=== PATIENT | female | born 1975 | race Caucasian/White ===

== ENCOUNTER 2018-01-02 05:50 | Inpatient (IN) | payer MEDICAID, SELFPAY ==
[2018-01-01 09:33] VITALS: BMI 35.6
[2018-01-01 09:42] LABS: Absolute Lymphocyte Count 1.29 X10^3/ul (0.83-4.51); Absolute Neutrophil Count 4.3 X10^3/uL (2.0-7.7); Basophil# 0.01 X10^3/uL; Basophil% 0.2 % (0-1); Eosinophil# 0.06 X10^3/uL; Eosinophils% 0.9 % (0-5); Hematocrit 33.6 % (37-47); Hemoglobin 10.9 g/dl (12.0-15.0); Lymphocyte # 1.29 X10^3/ul (4.0); Lymphocyte % 20.3 % (19-41); Mean Corp Hgb Conc 32.4 g/gl (32-36); Mean Corpuscular Hgb 27.4 pg (27.0-32.0); Mean Corpuscular Volume 84.4 fL (81-99); Mean Platelet Vol. 9.8 fl (6.2-12.0); Monocyte# 0.64 X10^3/uL; Monocyte% 10.1 % (0-10); Neutrophil # 4.33 X10^3/uL (2.7-7.7); Neutrophil % 68.3 % (47-70); Platelet Count 187 K/mm3 (150-450); RBC Distribution Width CV 14.5 % (11.6-14.6); RBC Distribution Width SD 43.6 fl (35.1-43.9); Red Blood Count 3.98 M/mm3 (4.2-5.4); White Blood Count 6.3 K/mm3 (4.4-11.0)
[2018-01-01 09:43] LABS: POSITIVE COUNT NO; POSITIVE DIFFERENTIAL NO; POSITIVE MORPHOLOGY NO
[2018-01-01 09:45] LABS: Prothrombin Time (Protime)PT. 12.9 SECONDS (11.7-14.9)
[2018-01-01 09:46] LABS: Partial Thromboplast Time 25.1 Seconds (24.1-36.2)
[2018-01-02] VITALS (21 sets, daily range): BP systolic 113–147; BP diastolic 49–82; PULSE 71–96; RESP 16–23; TEMP 36.6–37.4; O2SAT 91–100
[2018-01-02] MEDS: Lactated Ringers 1,000 ML 999 ML IV (06:29)
[2018-01-02] MEDS: Lactated Ringers 1,000 ML 150 ML IV (07:10)
[2018-01-02] MEDS: Cefazolin 2 GM in 0.9% Normal Saline 100 ML IV (07:12)
[2018-01-02] MEDS: Sodium Citrate/Citric Acid 30 ML UDC PO (07:12)
--- NOTE | 2018-01-02 07:18 | PCM.DCCSEC ---
Discharge Diet: No Restrictions Discharge Activity: May not drive while taking narcotic pain medications., May Shower, May Take a Tub Bath Return to work on:: 02/18/18 May resume sexual activity in: 4-6 weeks Lifting Restrictions: 20 pounds Additional Activity Instructions:: Nothing in the vagina for 4-6 weeks. You may return to work/school in 6 weeks. Change Dressing in (Days):: 14 Remove Dressing in (days):: 14 Cleanse incision/area with: Soap & Water, Keep Dressing Clean & Dry Additional Instructions: If you experience any of the following, contact your healthcare provider. Bleeding that soaks a pad every hour for 2 hours Fever 100.4 or higher Unrelieved incision or abdominal pain Swelling, redness, discharge or bleeding from your incision Problems urinating (including inability to urinate or burning while urinating). Visual changes Severe headache Flu-like symptoms Pain or redness in one of both of your breasts Pain, warmth, tenderness or swelling in your legs, especially the calf area Frequent nausea and vomiting Symptoms of depression or anxiety If you experience any of the following, call 911 or go to the nearest Emergency Room. Chest pain Problems breathing Seizure activity Partial or complete paralysis of a body part, slurred speech, weakness or drooping of the face, or a sudden inability to walk or hold your balance Allergies/Adverse Reactions: Allergies No Known Allergies Allergy (Verified 01/02/18 06:23) Medications to take at Discharge Vit No.130/Iron/FA [ Vitamins] 1 each PO DAILY 01/01/18 Docusate Sodium [Colace] 100 mg PO BID PRN #30 cap 01/02/18 Naproxen 250 - 500 mg PO Q8H PRN PRN #30 tab 01/02/18 Oxycodone [Oxyir] 5 - 10 mg PO Q6H PRN PRN 7 Days #28 tablet 01/02/18 The following prescriptions were given: Oxycodone [Oxyir] 5 - 10 mg PO Q6H PRN PRN 7 Days #28 tablet PRN Reason: Mod-Severe Pain (4-10/10) Naproxen 250 - 500 mg PO Q8H PRN PRN #30 tab PRN Reason: Mild-Mod Pain (1-5/10) Docusate Sodium [Colace] 100 mg PO BID PRN #30 cap PRN Reason: Constipation Follow-Up: Call to make an appointment with your doctor for an incision check in 1-2 weeks. You will also need a 6 week post- follow up appointment. Please Follow Up With: Jennie Alamo MD - [phone] When: Call to make an appointment for an incision check in 2 weeks. Primary Care Physician: Yesika De Paz [Primary Care Provider] - Proposed Discharge Date: 01/04/18
--- NOTE | 2018-01-02 07:25 | DCINST_ITS ---
Discharge Diet: No Restrictions Discharge Activity: May not drive while taking narcotic pain medications., May Shower, May Take a Tub Bath Return to work on:: 02/18/18 May resume sexual activity in: 4-6 weeks Lifting Restrictions: 20 pounds Additional Activity Instructions:: Nothing in the vagina for 4-6 weeks. You may return to work/school in 6 weeks. Change Dressing in (Days):: 14 Remove Dressing in (days):: 14 Cleanse incision/area with: Soap & Water, Keep Dressing Clean & Dry Additional Instructions: If you experience any of the following, contact your healthcare provider. * Bleeding that soaks a pad every hour for 2 hours * Fever 100.4 or higher * Unrelieved incision or abdominal pain * Swelling, redness, discharge or bleeding from your incision * Problems urinating (including inability to urinate or burning while urinating) . * Visual changes * Severe headache * Flu-like symptoms * Pain or redness in one of both of your breasts * Pain, warmth, tenderness or swelling in your legs, especially the calf area * Frequent nausea and vomiting * Symptoms of depression or anxiety If you experience any of the following, call 911 or go to the nearest Emergency Room. * Chest pain * Problems breathing * Seizure activity * Partial or complete paralysis of a body part, slurred speech, weakness or drooping of the face, or a sudden inability to walk or hold your balance Allergies/Adverse Reactions: Allergies No Known Allergies Allergy (Verified 01/02/18 06:23) Medications to take at Discharge Vit No.130/Iron/FA [ Vitamins] 1 each PO DAILY 01/01/18 Docusate Sodium [Colace] 100 mg PO BID PRN #30 cap 01/02/18 Naproxen 250 - 500 mg PO Q8H PRN PRN #30 tab 01/02/18 Oxycodone [Oxyir] 5 - 10 mg PO Q6H PRN PRN 7 Days #28 tablet 01/02/18 The following prescriptions were given: Oxycodone [Oxyir] 5 - 10 mg PO Q6H PRN PRN 7 Days #28 tablet PRN Reason: Mod-Severe Pain (4-10/10) Naproxen 250 - 500 mg PO Q8H PRN PRN #30 tab PRN Reason: Mild-Mod Pain (1-5/10) Docusate Sodium [Colace] 100 mg PO BID PRN #30 cap PRN Reason: Constipation Follow-Up: Call to make an appointment with your doctor for an incision check in 1-2 weeks. You will also need a 6 week post- follow up appointment. Please Follow Up With: Jennie Alamo MD - [phone] When: Call to make an appointment for an incision check in 2 weeks. Primary Care Physician: Yesika De Paz [Primary Care Provider] - Proposed Discharge Date: 01/04/18
[2018-01-02] MEDS: Oxytocin 30 units/NS 500 ml 30 UNITS/500 ML IV.SOLN 167 UNITS IV (07:47)
[2018-01-02] MEDS: Methylergonovine 0.2 MG/ML Ampul IM (07:50)
[2018-01-02] MEDS: Lactated Ringers 1,000 ML 100 ML IV ×2 (08:52→18:51)
[2018-01-02] MEDS: 0.9% Saline Lock 10 ML Syringe IV ×7 (10:00→18:50)
--- NOTE | 2018-01-02 10:49 | FALS_PTH ---
PATIENT: JESÚS ORTIZ LOC: [facility] U#:[id number] AGE/SX: 42/F ROOM: WP008 RE01/02/[address]: Dr. Jennie Alamo MD : 1975 BED: 1 DIS: 01/05/2018 SPEC #: [id number] RECD: 01/02/18 11:28 STATUS: GUZMAN CED #: [id number] SHERITA: 01/02/18 10:[address]: Jennie Alamo DEPT: SURGICAL PATHOLOGY RECD BY: Luz Elena Sigala ENTERED: 01/02/18 12:25 SP TYPE: FALL TUBES OTHR DR: Dr. Yesika De Paz MD Tissues: Fallopian tube Procedures: Surgery Specimen Level II HEADER OPERATION: Tubal ligation PRE-OP DIAGNOSIS: Tubal ligation TISSUE SUBMITTED: Fallopian tubes, left with tie MICROSCOPIC DIAGNOSIS Bilateral fallopian tubes, tubal ligation: Completely transected segments of bilateral fallopian tubes, no pathologic diagnosis. SJ:siddharth 01/03/18 MICROSCOPIC DESCRIPTION Slides are reviewed. GROSS DESCRIPTION Received is one container labeled with the patient's name and designated bilateral fallopian tubes, tie on left. The specimen consists of two tubular pieces of chandra soft tissue. The left is identified by a tie. The right tube measures 1 cm in length and 0.5 cm in diameter. The left tube measures 0.5 cm in length and 0.5 cm in diameter and it is inked black. The entire specimen is submitted in one cassette. Both pieces will be sectioned at the time of embedding. / DERICK:siddharth 01/02/18 TC:4 CPT: 42619 x2
[2018-01-02] MEDS: Prenatal Vits Tablet 1 TABLET PO (12:04)
[2018-01-02] MEDS: Ketorolac 30 MG/ML Syringe IV ×2 (14:36→20:46)
[2018-01-02] MEDS: HYDROmorphone 1 MG/ML Syringe IV ×2 (16:04→18:49)
--- NOTE | 2018-01-02 18:27 | PCM.OP.BLANK ---
Operative Report Date of Procedure: 01/02/18 Date of Procedure: 01/02/2018 PROCEDURE: Repeat C SECTION Bilateral partial salpingectomy Preoperative diagnosis: 39 wk EGA Prior C section delivery, planned repeat C/S Sterilization request Postop diagnosis: 39 wk EGA Prior C section delivery, planned repeat C/S Sterilization request Anesthesia: Spinal per José Miguel Moore CRNA Converted to General Anesthesia Mane Israel MD as spinal not effective and no surgical level Surgeon: Jennie Alamo MD Upholstery Estimator: SAQIB Solis EBL 800 cc Complications: none Drains: Perez draining clear yellow urine Fluids: replacement LR Findings: At amniotomy, clear fluid was noted. Nick viable female in vtx presentation. Apgars 7/8, Baby weight: 7# 1 oz There were normal appearing uterus, fallopian tubes and ovaries bilaterally. PATH: Routine cord gases were sent. Narrative account: After the risks, benefits and alternatives of the procedure were reviewed with the patient , informed consent was obtained. The patient was taken to the Operating room with an IV running . She was placed in a seated position on the operating room table and a Spinal was administered. The patient was the repositioned to the dorsal supine position with leftward displacement of the uterus , briefly frog-legged for placement of the Perez catheter under sterile technique, and then repositioned again to dorsal supine position with leftward displacement of the uterus, and prepped and draped in the usual sterile fashion. On testing, the spinal was NOT adequate -- no levels were noted. Dr. Mane Israel was called in and the decision was made to proceed with a general anesthesia . She was prepped and draped in the usual sterile fashion. General anesthesia was then administered and once she was intubated, the C section commenced. A Pfannenstiel skin incision was created using the knife . The incision was carried down to the rectus fascia using the knife. The fascia was nicked in the midline. The fascial incision was extended bilaterally using curved Ortiz scissors. The superior aspect of the fascial incision was grasped with Preston clamps and tented up and the underlying rectus abdominal muscles were dissected free. In a similar manner, the inferior aspect of the facial incision was grasped with Preston clamps tented up and the underlying rectus abdominal muscles were dissected free. The rectus abdominis muscles were widely . The peritoneum was identified and entered by sharp dissection. The peritoneal incision was then extended inferiorly and superiorly using Metzenbaum scissors. The peritoneum was stretched laterally and a bladder blade was inserted. The uterine incision was then created using Metzenbaum scissors.The uterine incision was extended by blunt dissection in a caudad- cephalad orientation using the pile driver operator barge mounted's fingertips. Clear fluid was noted at amniotomy. The baby was then delivered . The OP and nares were bulb suctioned on the abdomen. The cord was clamped x two and cut and the baby was passed off quickly to the nurse and flight follower awaiting delivery. The baby was initially with poor tone and minimal respiratory effort. (general anesthesia) The umbilical cord was doubly clamped for later cord gas collection . The placenta was then delivered. The uterus was exteriorized and cleared of clots and debris . The cervix was dilated with a ring forceps which was then passed off the field. The uterine incision was repaired with 1 Vicryl in a running locked fashion. Additional figure of eight and horizontal mattress stitches of 1 Vicryl were placed along the uterine incision for hemostasis. Excellent hemostasis was noted. The uterus was initially boggy but responded to IV Pitocin push and to uterine massage. Methergine 0.2 mg IM x one was also given in the R thigh. The R fallopian tube was grasped at a relatively avascular midportion with a [place] clamp and tented up. Bovie cautery was used to create a defect in the mesosalpinx. The proximal and distal ends of the fallopian tube at this serosal defect with tied with catgut. A knuckle of the R fallopian tube was tented up and an additional ligature was placed inferior to both prior ties placed. The knuckle of the fallopian tube was excised by Metzenbaum scissors. The segment of the R fallopian tube excised was set aside for path review. The tubal stumps were Bovie cauterized. The L fallopian tube was the tied in a similar manner. Tubal segments were set aside for later pathology review. The uterus, fallopian tubes and ovaries were then inspected and returned to the abdominal cavity. The gutters were cleared of clots and debris. The uterine incision and fallopian tubes were again inspected. Excellent hemostasis was noted. The rectus abdominis and peritoneal edges were reapproximated in the midline with interrupted vertical mattress stitches of 1 Vicryl . Excellent hemostasis was noted at the subfascial space. The fascia was closed in a running nonlocked fashion with 1 Vicryl. The Subcutaneous fatty tissue was Bovie cauterized as needed for hemostasis. This layer was then reapproximated with a nonlocked running 3-0 Vicryl. The skin edges were closed in a Subcuticular stitch of 4-0 Monocryl. The incision was cleansed. Seri-strips, and a sterile dressing were applied. The patient was then transferred to the recovery room bed in stable condition after tolerating the procedure well. Sponge, lap, needle and instrument counts correct times two. Medications given preop and intraoperatively included: Ancef 2 gm IV given adult basic education instructor to the operating room. The patient also received Pitocin given IV after cord clamp, Methergine 0.2 mg IM in R thigh (for mild uterine atony under general anesthesia), and Toradol 30 mg IV after cord clamp. For a complete listing of medications given preop and intraoperatively, please see the anesthesia record.
--- NOTE | 2018-01-02 18:42 | OP.PCM_ITS ---
Operative Report Date of Procedure: 01/02/18 Date of Procedure: 01/02/2018 PROCEDURE: Repeat C SECTION Bilateral partial salpingectomy Preoperative diagnosis: 39 wk EGA Prior C section delivery, planned repeat C/S Sterilization request Postop diagnosis: 39 wk EGA Prior C section delivery, planned repeat C/S Sterilization request Anesthesia: Spinal per José Miguel Moore CRNA Converted to General Anesthesia Mane Israel MD as spinal not effective and no surgical level Surgeon: Jennie Alamo MD Grades 9 12 Tutor: SAQIB Solis EBL 800 cc Complications: none Drains: Perez draining clear yellow urine Fluids: replacement LR Findings: At amniotomy, clear fluid was noted. Nick viable female in vtx presentation. Apgars 7/8, Baby weight: 7# 1 oz There were normal appearing uterus, fallopian tubes and ovaries bilaterally. PATH: Routine cord gases were sent. Narrative account: After the risks, benefits and alternatives of the procedure were reviewed with the patient , informed consent was obtained. The patient was taken to the Operating room with an IV running . She was placed in a seated position on the operating room table and a Spinal was administered. The patient was the repositioned to the dorsal supine position with leftward displacement of the uterus , briefly frog-legged for placement of the Perez catheter under sterile technique, and then repositioned again to dorsal supine position with leftward displacement of the uterus, and prepped and draped in the usual sterile fashion. On testing, the spinal was NOT adequate -- no levels were noted. Dr. Mane Israel was called in and the decision was made to proceed with a general anesthesia . She was prepped and draped in the usual sterile fashion. General anesthesia was then administered and once she was intubated, the C section commenced. A Pfannenstiel skin incision was created using the knife . The incision was carried down to the rectus fascia using the knife. The fascia was nicked in the midline. The fascial incision was extended bilaterally using curved Ortiz scissors. The superior aspect of the fascial incision was grasped with Preston clamps and tented up and the underlying rectus abdominal muscles were dissected free. In a similar manner, the inferior aspect of the facial incision was grasped with Preston clamps tented up and the underlying rectus abdominal muscles were dissected free. The rectus abdominis muscles were widely . The peritoneum was identified and entered by sharp dissection. The peritoneal incision was then extended inferiorly and superiorly using Metzenbaum scissors. The peritoneum was stretched laterally and a bladder blade was inserted. The uterine incision was then created using Metzenbaum scissors.The uterine incision was extended by blunt dissection in a caudad- cephalad orientation using the hoop punch and coiler operator helper's fingertips. Clear fluid was noted at amniotomy. The baby was then delivered . The OP and nares were bulb suctioned on the abdomen. The cord was clamped x two and cut and the baby was passed off quickly to the nurse and research and development scientist awaiting delivery. The baby was initially with poor tone and minimal respiratory effort. (general anesthesia) The umbilical cord was doubly clamped for later cord gas collection . The placenta was then delivered. The uterus was exteriorized and cleared of clots and debris . The cervix was dilated with a ring forceps which was then passed off the field. The uterine incision was repaired with 1 Vicryl in a running locked fashion. Additional figure of eight and horizontal mattress stitches of 1 Vicryl were placed along the uterine incision for hemostasis. Excellent hemostasis was noted. The uterus was initially boggy but responded to IV Pitocin push and to uterine massage. Methergine 0.2 mg IM x one was also given in the R thigh. The R fallopian tube was grasped at a relatively avascular midportion with a [place] clamp and tented up. Bovie cautery was used to create a defect in the mesosalpinx. The proximal and distal ends of the fallopian tube at this serosal defect with tied with catgut. A knuckle of the R fallopian tube was tented up and an additional ligature was placed inferior to both prior ties placed. The knuckle of the fallopian tube was excised by Metzenbaum scissors. The segment of the R fallopian tube excised was set aside for path review. The tubal stumps were Bovie cauterized. The L fallopian tube was the tied in a similar manner. Tubal segments were set aside for later pathology review. The uterus, fallopian tubes and ovaries were then inspected and returned to the abdominal cavity. The gutters were cleared of clots and debris. The uterine incision and fallopian tubes were again inspected. Excellent hemostasis was noted. The rectus abdominis and peritoneal edges were reapproximated in the midline with interrupted vertical mattress stitches of 1 Vicryl . Excellent hemostasis was noted at the subfascial space. The fascia was closed in a running nonlocked fashion with 1 Vicryl. The Subcutaneous fatty tissue was Bovie cauterized as needed for hemostasis. This layer was then reapproximated with a nonlocked running 3-0 Vicryl. The skin edges were closed in a Subcuticular stitch of 4-0 Monocryl. The incision was cleansed. Seri-strips , and a sterile dressing were applied. The patient was then transferred to the recovery room bed in stable condition after tolerating the procedure well. Sponge, lap, needle and instrument counts correct times two. Medications given preop and intraoperatively included: Ancef 2 gm IV given information technology architect to the operating room. The patient also received Pitocin given IV after cord clamp, Methergine 0.2 mg IM in R thigh (for mild uterine atony under general anesthesia), and Toradol 30 mg IV after cord clamp. For a complete listing of medications given preop and intraoperatively, please see the anesthesia record.
[2018-01-03] VITALS (9 sets, daily range): BP systolic 116–124; BP diastolic 57–72; PULSE 70–95; RESP 18–23; TEMP 36.4–37.3; O2SAT 95–100
[2018-01-03] MEDS: HYDROmorphone 1 MG/ML Syringe IV ×3 (00:10→08:19)
--- NOTE | 2018-01-03 02:14 | NURSING ---
nasal canula remains on, pt took off briefly to wash face and sat dropped to low 90's
[2018-01-03] MEDS: Ketorolac 30 MG/ML Syringe IV ×4 (03:21→20:56)
[2018-01-03 04:33] LABS: Hematocrit 24.8 % (37-47); Hemoglobin 7.8 g/dl (12.0-15.0); Mean Corp Hgb Conc 31.5 g/gl (32-36); Mean Corpuscular Hgb 26.9 pg (27.0-32.0); Mean Corpuscular Volume 85.5 fL (81-99); Mean Platelet Vol. 9.6 fl (6.2-12.0); Platelet Count 160 K/mm3 (150-450); RBC Distribution Width CV 14.5 % (11.6-14.6); RBC Distribution Width SD 43.4 fl (35.1-43.9); White Blood Count 7.9 K/mm3 (4.4-11.0)
[2018-01-03 04:36] LABS: Scan Indicated on CBC? Y/N NO
--- NOTE | 2018-01-03 07:43 | PCM.PN.OB ---
Subjective: POD#1 Repeat C/S and BPS under general anesthesia. Duramorph in but no effect. Pt also received narcotics for pain yesterday. Pulse ox dropped without O2 overnight so N.C. maintained, and plan to wean off this today. Pain ok now. States + flatus, no BM. Nursing and pumping. Baby doing well. Bleeding OK. No concerns voiced. - Physical Exam General: Alert, Oriented x3, Cooperative, No apparent distress - appears pale HEENT: Atraumatic, PERRLA Neck: Supple Abdomen: Soft - Fundus inferior to umbilicus x 1-2 cm. Tender consistent with postop status Skin: Incision - Cover dressing removed. Steristrips CDI. Well approximated Neurological: Cranial nerves II-XII grossly intact Psych/Mental Status: Normal Affect Vital Signs Temp Pulse Resp BP Pulse Ox 98.0 F 77 18 116/57 L 97 /18 03:09 01/03/18 05:25 01/03/18 05:25 01/03/18 03:09 01/03/18 05:25 Oxygen Flow Rate 2 Oxygen Delivery Method Nasal Cannula Weight: 91.4 kg Body Mass Index (BMI) 35.6 Intake and Output for Last 24 Hours 02/06/18 02//18 18 23:59 23:59 23:59 Intake Total 6217 / 6217 1144 / 1144 Output Total 1600 / 1600 1800 / 1800 Balance 4617 / 4617 -656 / -656 Laboratory Tests Past 24 Hrs //18 04:10 WBC 7.9 RBC 2.90 L Hgb 7.8 L Hct 24.8 L MCV 85.5 MCH 26.9 L MCHC 31.5 L RDW 14.5 RDW Differential 43.4 Plt Count 160 MPV 9.6 Assessment/Plan POD#1 repeat C/S and BPS under general anesthesia Stable postop . Wean off pulse ox per protocol. Suspect narcotic effect. No cough, no URI. no CXR ordered. D/C molina for voiding trial. Anemia prior to delivery, and superimposed acute blood loss anemia. Pulse stable, and BP stable. Ferrous sulfate RX until 1 mo postop. Inc diet and activity as tolerated. PO pain meds. Continue IV Toradol for up to 48 hr postop. Continue care.
[2018-01-03] MEDS: Ferrous Sulfate 325 MG Tablet PO ×2 (08:20→17:37)
[2018-01-03] MEDS: Senna/Docusate Sodium 1 Tablet PO (08:20)
[2018-01-03] MEDS: 0.9% Saline Lock 10 ML Syringe IV ×4 (08:20→20:56)
[2018-01-03] MEDS: oxyCODONE 5 MG Tablet PO ×2 (13:34→17:34)
[2018-01-03] MEDS: Prenatal Vits Tablet 1 TABLET PO (13:35)
[2018-01-03 14:59] LABS: Pathology Specimen OB SEE PATHOLOGY REPORT
[2018-01-04] MEDS: oxyCODONE 5 MG Tablet PO ×5 (02:00→20:58)
[2018-01-04] MEDS: Senna/Docusate Sodium 1 Tablet PO ×2 (02:01→12:21)
[2018-01-04 02:03] VITALS: BP 120/66; PULSE 85; RESP 18; TEMP 37.3; O2SAT 97
[2018-01-04] MEDS: Ketorolac 30 MG/ML Syringe IV ×2 (03:04→09:24)
[2018-01-04] MEDS: 0.9% Saline Lock 10 ML Syringe IV (03:04)
[2018-01-04 09:00] VITALS: BP 124/72; PULSE 90; RESP 18; TEMP 37.2; O2SAT 97
[2018-01-04] MEDS: Prenatal Vits Tablet 1 TABLET PO (09:24)
[2018-01-04] MEDS: Ferrous Sulfate 325 MG Tablet PO ×2 (09:24→16:42)
[2018-01-04] MEDS: Naproxen 250 MG Tablet PO ×2 (13:58→22:35)
[2018-01-04 14:00] VITALS: BP 113/63; PULSE 90; RESP 16; TEMP 37.4; O2SAT 96
[2018-01-04 18:50] VITALS: BP 122/66; PULSE 84; RESP 18; TEMP 37.3; O2SAT 95
[2018-01-05] MEDS: oxyCODONE 5 MG Tablet PO ×3 (01:19→12:19)
[2018-01-05 01:20] VITALS: BP 111/63; PULSE 70; RESP 17; TEMP 36.9; O2SAT 96
[2018-01-05] MEDS: Naproxen 250 MG Tablet PO (06:38)
[2018-01-05 07:45] VITALS: BP 118/64; PULSE 84; RESP 16; TEMP 36.7; O2SAT 95
[2018-01-05] MEDS: Senna/Docusate Sodium 1 Tablet PO (07:58)
[2018-01-05] MEDS: Ferrous Sulfate 325 MG Tablet PO (07:58)
--- NOTE | 2018-01-05 10:57 | PCM.PN.OB ---
Subjective: Note for 01/04/18 (POD 2) Pt without complaints. Positive flatus. Wants to stay another day as baby not well. - Physical Exam Vital Signs Temp Pulse Resp BP Pulse Ox 98.1 F 84 16 118/64 95 01/05/18 07:45 01/05/18 07:45 01/05/18 07:45 01/05/18 07:45 01/05/18 07:45 Oxygen Flow Rate 2 Oxygen Delivery Method Room Air Weight: 201 lb 8.04 oz Body Mass Index (BMI) 35.6 Intake and Output for Last 24 Hours 01/03/18 01/04/18 01/05/18 23:59 23:59 23:59 Intake Total 1144 / 1144 Output Total 3000 / 3000 Balance -1856 / -1856 Wound CDI. Good UOP. Hgb OK. Assessment/Plan Doing well. Continuing present care.
--- NOTE | 2018-01-05 11:54 | PCM.PN.OB ---
Subjective: Postoperative day #3 Patient without complaints. Tolerating diet well. Positive flatus. Ready to go home today. - Physical Exam Vital Signs AF, VSS Temp Pulse Resp BP Pulse Ox 98.1 F 84 16 118/64 95 01/05/18 07:45 01/05/18 07:45 01/05/18 07:45 01/05/18 07:45 01/05/18 07:45 Oxygen Flow Rate 2 Oxygen Delivery Method Room Air Weight: 201 lb 8.04 oz Body Mass Index (BMI) 35.6 Intake and Output for Last 24 Hours 01/03/18 01/04/18 01/05/18 23:59 23:59 23:59 Intake Total 1144 / 1144 Output Total 3000 / 3000 Balance -1856 / -1856 Wound is clean, dry, intact. Assessment/Plan Doing well. Will release to home with routine instructions. Follow-up in 2 weeks and 6 weeks.
[2018-01-05 11:56] VITALS: BP 122/57; PULSE 79; RESP 18; TEMP 37.1; O2SAT 96
--- NOTE | 2018-01-05 12:01 | PCM.DC.BLA ---
Discharge Summary Date of Admission: 01/02/18 Date of Discharge: 01/05/18 Summary: Admission diagnosis: Term intrauterine , prior , desires sterilization Discharge diagnosis: Term intrauterine prior , desires sterilization Procedure: Repeat low transverse cervical section and bilateral tubal occlusion HPI: Uneventful care. PE: Unremarkable. Hospital Course: The patient is a 42 year old who presented to [facility] at plus weeks gestation for repeat section. This was accomplished without complication although it was necessary to use general anesthesia as spinal anesthesia was not successful. Postoperatively she did well demonstrating a stable HGB on POD 1 and bowel fxn by POD 3 at which time it was felt she was ready for discharge. Homegoing Instruction: She was instructed not to drive for several days or if using narcotic pain medication, not to put anything in the vagina for 4 weeks, not to lift >25 lbs for 6 weeks and to call the office for an appointment in 2 weeks and 6 weeks. Discharge Medications: She was given a prescription for Oxycodone and Colace and also plans to use Aleve or Motrin or Tylenol at home as needed for pain and constipation.
[2018-01-05] MEDS: Prenatal Vits Tablet 1 TABLET PO (12:19)
== END 2018-01-05 14:05 | disposition home or self-care (01) | DRG 370 ==
PROVIDERS: Admitting Provider Obstetrics & Gynecology; Family Provider Internal Medicine; PCP Internal Medicine; Visit Provider Obstetrics & Gynecology
DX: O09.523 Supervision of elderly multigravida, third trimester (principal); O99.02 Anemia complicating childbirth; D62 Acute posthemorrhagic anemia; O99.03 Anemia complicating the puerperium; O34.211 Maternal care for low transverse scar from previous cesarean delivery; Z3A.39 39 weeks gestation of pregnancy; Z37.0 Single live birth
CPT/HCPCS: 85025; 85027; 85610; 85730; 86850; 86900; 88302; 94762; 99218; J7120; A4216; G0378; J2405

== ENCOUNTER → 2018-01-10 17:01 | Outpatient (CLI) | payer MEDICAID, SELFPAY | PROVIDERS: Visit Provider Obstetrics & Gynecology | DX: R10.9 Unspecified abdominal pain (principal) | CPT/HCPCS: 87077; 87086; 87088; 87186 ==

== ENCOUNTER → 2019-01-15 13:52 | Outpatient (CLI) | payer SELFPAY ==
[2018-01-01 09:33] VITALS: BMI 35.6
[2019-01-23 13:23] LABS: HPV Reflexed? NOT INDICATED
== END ==
PROVIDERS: Visit Provider Obstetrics & Gynecology
DX: Z12.4 Encounter for screening for malignant neoplasm of cervix (principal)
CPT/HCPCS: 88175; G0145

== ENCOUNTER → 2019-03-19 | Outpatient (CLI) | payer MEDICAID, SELFPAY ==
[2018-01-01 09:33] VITALS: BMI 35.6
--- NOTE | 2019-03-19 10:47 | BI_ITS ---
MAMMOGRAPHY - BILATERAL SCREENING 3-D TOMOSYNTHESIS REASON FOR EXAM: Female, 43 years old. Baseline Bilateral Screening 3-D tomosynthesis PERTINENT HISTORY: No significant family history. TECHNIQUE: 2-D mammograms and 3-D Tomosynthesis of the breast (s) were performed. CAD was performed. COMPARISON: None. Baseline examination. FINDINGS: The breast composition is heterogeneously dense that can obscure small breast masses. There is no suspicious nodule. There is no suspicious mass. There are bilateral, regional microcalcifications that are too numerous to count within the upper outer quadrants. Many of these calcifications demonstrate superimposed loose clustering. However, all the calcifications appear monomorphic. There is no definite suspicious tight cluster of pleomorphic microcalcification. BI/SCREENING MAMM (CAD), BILAT IMPRESSION: No mammographic signs of malignancy. Routine yearly mammograms recommended. ASSESSMENT CATEGORY: BIRADS Category 2: Benign. A letter regarding these results will be sent to the patient by the facility within 30 days. FOLLOW UP RECOMMENDATION: Yearly follow up mammogram recommended. (A) Approximately 10% of breast cancers are not detected by mammography. A normal mammogram should not delay biopsy of a clinically suspicious abnormality. Electronically Signed: Jamie Fish MD at 15:04 EDT , Service support ,
== END | disposition home or self-care (01) ==
PROVIDERS: Family Provider Internal Medicine; PCP Internal Medicine; Referring Provider Obstetrics & Gynecology; Visit Provider Obstetrics & Gynecology
DX: Z12.31 Encounter for screening mammogram for malignant neoplasm of breast (principal)
CPT/HCPCS: 77063; 77067